=== PATIENT | female | born 1990 | race Caucasian/White ===

== ENCOUNTER 2016-11-22 14:18 | Emergency (ER) | payer OTHER ==
[~2016-11-22] VITALS: Ht 152.4 cm; Wt 54.4 kg
[~2016-11-22 14:18] MED LIST: IBUPROFEN 600600 M1 PO; NAPROSYN500 MG PO; ORTHO TRI-CYCL1 EACH PO; ZOLOFT20 MG/1 ML PO
[2016-11-22] MEDS ORDERED: LAMICTAL100 MG PO (14:24)
[2016-11-22] MEDS ORDERED: IBUPROFEN 600600 M1 PO (15:52)
[2016-11-22 16:45] VITALS: BP 130/91
== END 2016-11-22 18:11 | disposition home or self-care (01) ==
LOC: ER 14:18
DX: M20.001 Unspecified deformity of right finger(s) (principal); F32.9 Major depressive disorder, single episode, unspecified; F10.99 Alcohol use, unspecified with unspecified alcohol-induced disorder; Z02.89 Encounter for other administrative examinations; Z86.2 Personal history of diseases of the blood and blood-forming organs and certain disorders involving the immune mechanism; Z90.89 Acquired absence of other organs; Z88.5 Allergy status to narcotic agent; Z87.891 Personal history of nicotine dependence